=== PATIENT | male | born 1955 | race Caucasian/White ===

== ENCOUNTER → 2021-04-04 09:14 | Outpatient (CLI) | payer OTHER, SELFPAY ==
[2021-04-04 10:52] LABS: COVID19 -Nasal RAPID Negative (Negative)
== END ==
PROVIDERS: PCP Nurse Practitioner; Visit Provider Nurse Practitioner
DX: Z01.812 Encounter for preprocedural laboratory examination (principal); Z20.822 Contact with and (suspected) exposure to COVID-19
CPT/HCPCS: 87635

== ENCOUNTER 2021-04-06 06:22 | Day surgery (SDC) | payer OTHER, SELFPAY ==
[2021-03-31 13:57] VITALS: BMI 40.0
[2021-04-06] VITALS (14 sets, daily range): BP systolic 90–153; BP diastolic 35–91; PULSE 72–93; RESP 12–20; TEMP 35.9–37.2; O2SAT 95–100; BMI 39.3
--- NOTE | 2021-04-06 06:00 | DI.RAD.S_ITS ---
PROCEDURE: XR KNEE RT 1TO2V INDICATIONS: post op total knee TECHNIQUE: 2 view(s) of the knee acquired. COMPARISON: None. FINDINGS: Bones: Patient is status post knee joint arthroplasty. Hardware components are in expected positions. Visualized bony structures are intact. Soft tissues: Overlying postoperative changes are noted. IMPRESSION: Expected immediate postoperative appearance of right TKA. Dictated by: Bashir Bourne RRA Interpreted: Jacquelyn Bosch MD on 04/06/2021 at 12:33 Transcribed by: CARL on 04/06/2021 at 12:33 Approved by: Jacquelyn Bosch MD, PhD on 04/06/2021 at 12:57
[2021-04-06] MEDS: ACETAMINOPHEN 325 MG TABLET 975 MG PO (07:05)
[2021-04-06] MEDS: PREGABALIN 75 MG CAPSULE PO (07:06)
[2021-04-06] MEDS: CELECOXIB 200 MG CAPSULE PO (07:06)
[2021-04-06] MEDS: LACTATED RINGERS 1,000 ML 42 ML IV ×2 (07:11→09:40)
--- NOTE | 2021-04-06 07:17 | PM.PREOP ---
Pre-operative Note COVID-19 COVID-19 status: Negative Result date/Date tested (Pos, Neg/Pending): 04/04/21 Interval Note History & Physical reviewed/Exam performed by Physician: Yes Changes to H&P: No
--- NOTE | 2021-04-06 07:18 | PM.OP.1 ---
Operative Date/Time/Diagnoses Date of procedure: 04/06/21 Time of procedure: 10:05 Pre-op diagnosis: Right knee osteoarthritis Post-op diagnosis: same Procedure & Clinicians Procedure: Right total knee replacement Same procedure as scheduled: Yes Indications: The patient has had progressively worsening right knee pain with radiographic changes consistent with arthritis. Non-operative management has failed and the patient has requested total knee replacement. The risks, benefits and alternatives to surgery were discussed with the patient prior to proceeding. Risks discussed included, but were not limited to, failure to relieve pain, stiffness, infection, nerve damage, deep venous thrombosis, pulmonary embolism, stroke, coma, heart attack, permanent paralysis and , as well as the potential need for eventual revision of the prosthetic. Surgeon: Alan Jefferson Platen Press Feeder: Medhat Cannon Click Yes if Unassisted: No Anesthesia Type: Spinal, Sedation and Local Operative Notes Findings: Severe right knee osteoarthritis with significant synovial inflammation. Closure Type: primary Specimen(s): none sent Prosthetic devices, grafts, tissues, transplants, or devices: Implants used in this procedure were manufactured by the [employer] and [employer] and included the BCS II Journey total knee replacement with a size 7 right Oxinium femoral component, a size 6 right non porous tibial base plate. A 15 mm cross-linked tibial insert and a 38 mm oval Maxine II patella. Applied: implant(s) Estimated Blood Loss (mL): 50 Blood products transfused: none Tourniquet time (min): 59 Procedure in detail: The patient was seen in the pre-operative area, where the patient identified the right knee as the operative site and this was marked with my initials. The patient received pre-operative antibiotics, and was taken to the operating room and placed on the operative table in the supine position. After satisfactory anesthesia, a automotive diagnostic technician out was performed. The right leg was encircled with a tourniquet about the proximal thigh, and the leg was prepared from the toes to the tourniquet with ChloroPrep in the usual fashion and draped through sterile drapes. The leg was elevated and exsanguinated with Eschmark bandage and the tourniquet inflated to 250 mmHg pressure. The knee was approached through an approximately 18 cm incision centered over the patella and carried into the knee through a medial parapatellar arthrotomy. The anterior osteophytes and soft tissues were removed. The rotational landmarks of [place]'s line and the transepicondylar axis were marked on the femur with electrocautery, and intramedullary guide holes for the femur and tibia were created. The distal femoral cut was made in 6 degrees of valgus using the intramedullary guide at the primary cut setting. The proximal tibial cut was then made using the intramedullary guide, taking 9 mm of bone off the less involved side. The extension gap was checked and the rotation of the femoral component confirmed with the gap balancing system. The anterior, posterior and chamfer cuts were then made. The posterior osteophytes and soft tissues were then removed. The posterior capsule was injected with part of a mixture of 50 ml 0.25% Marcaine mixed with 20 ml Exparel and 4 mg of morphine for post-operative pain control. The remainder of this mixture was injected into the capsule and subcutaneous tissues during cement curing. The tibia was prepared with the rotation set by an extra medullary guide. Trial tibial and femoral components were then placed and the intercondylar notch cut through the femoral trial. Range of motion was 0-135 degrees, with good stability throughout the range. Despite the excision of 9 mm of tibial plateau as measured a 15 mm insert was necessary for flexion and extension stability. The patella was then cut to accommodate the patellar prosthetic. There was no need for a lateral release. The trials were then removed, and the femoral hole plugged with a bone plug. The bone was prepared with pulsatile lavage, and dried with a sponge. Cement was applied and the final prosthetics placed. Excess cement was removed during and after cement curing. After confirming there was no extruded cement posteriorly, the final tibial insert was placed. The knee was copiously irrigated and the tourniquet deflated. Hemostasis was obtained. The capsule was closed with interrupted # 2 polyester suture. The subcutaneous layer was closed with 3-0 Vicryl, and the skin with a running 3-0 V-Lock suture and Dermabond. An Aquacel Ag dressing was applied and the patient was taken to recovery having tolerated the procedure well. Post-operative Condition: stable Disposition: PACU Plan for aftercare: The patient will be maintained on a standard total knee replacement protocol with weight bearing as tolerated. The patient will receive aspirin and sequential compression devices for DVT prophylaxis. The patient will be discharged home when safe for the home environment.
[2021-04-06] MEDS: MIDAZOLAM 2 MG/2 ML VIAL IV (07:47)
[2021-04-06] MEDS: fentaNYL 100 MCG/2 ML INJ 50 MCG IV (07:47)
--- NOTE | 2021-04-06 07:57 | SUR.PREOP ---
. 0745 -Preparing for right femoral nerve block. Monitoring initiated and maintained throughout procedure. Placed on 2L NC per instructions of Dr Gómez. Versed and Fentanyl given per orders. 0746 - Time out performed. 0751 - Injection time. 0753 - Block completed. Patient remained stable throughout procedure. No adverse reactions.
[2021-04-06] MEDS: TRANEXAMIC ACID 1,000 MG VIAL 1000 MG INJ (08:25)
[2021-04-06] MEDS: CEFAZOLIN 1 GM VIAL 2 GM IV (08:30)
--- NOTE | 2021-04-06 08:42 | SUR.OPER ---
Supine on padded OR bed. Pillow under head, arms secured on padded armboards <90 degree abduction. Safety belt across torso. Non-operative leg secured with tape over blanket over lower leg. Operative leg secured in [place]. Foam padded brace at thigh of operative leg.
[2021-04-06] MEDS: BUPIVACAINE 0.25% W/ EPI 30 ML VIAL 60 ML INJ (08:49)
[2021-04-06] MEDS: MORPHINE 4 MG/ML INJ INJ (08:50)
[2021-04-06] MEDS: BUPIVACAINE LIPOSOME 266 MG/20 ML VIAL INJ (08:50)
--- NOTE | 2021-04-06 10:23 | SUR.PHASEI ---
Received to PACu after spinal anesthesia. Airway patent, self maintained. VSS. Report received from Dr Quiroz and LUDA Rodriguez.
--- NOTE | 2021-04-06 10:45 | SUR.PHASEI ---
Paula (friend) updated on status and room assignment.
--- NOTE | 2021-04-06 11:04 | SUR.PHASEI ---
Pt transferred to room 218 with belongings bag and walker. Received in room by LUDA Huddleston.
[2021-04-06] MEDS: LACTATED RINGERS 1,000 ML 100 ML IV ×2 (11:24→21:24)
[2021-04-06] MEDS: OXYCODONE IR 10 MG TABLET PO ×3 (13:13→19:27)
[2021-04-06] MEDS: ACETAMINOPHEN 325 MG TABLET 650 MG PO ×2 (14:20→21:23)
[2021-04-06] MEDS: IBUPROFEN 400 MG TABLET PO ×3 (14:21→21:24)
--- NOTE | 2021-04-06 14:50 | PT.IIE ---
Current Diagnoses Bilateral primary osteoarthritis of knee (04/06/21) Unilateral primary osteoarthritis, right knee (04/06/21) Surgery Performed Operation Date: 04/06/21 07:45 Actual Procedures p Total Knee Arthroplasty(Right) - Alan Jefferson MD Medical History (Last Updated 03/31/21 @ 14:02 by Michelle Yanes RN) Arthritis BMI 40.0-44.9, adult Former smoker Osteoarthritis Physical Therapy Inpatient Evaluation/Re-Eval M1 PT/OT-IP Prior Functional Status Start: 04/06/21 16:40 Freq: NEEDED Status: Active Protocol: Document 04/06/21 14:50 AB (Rec: 04/06/21 17:00 AB [id number]) Medical Review Prior Functional Status Medical History Reviewed Yes Communication able to make needs known Mobility and Gait pt stated that he is independent with all mobilities and ambulation without AD but started to use FWW outdoors and 4WW indoors ~ 1 week prior to sx Social History Household Members none Living Arrangements House Number of Floors (Floors) Two Floors Number of Stairs To Enter/Railing? pt plans to stay on main level of the house: bedroom is upstairs with 15 steps L rail ascending but has set up and couch bed on main level of the house 3 steps L rail ascending to enter the house from the garage 3 steps with B rails to enter the house from the front of the house. pt prefers to use the stairs from the garage Home Environment Standard Height Toilet,Tub/ Shower Doors Home Equipment Front Wheel Walker,Four Wheel Walker,Tub Transfer Bench,Hand Held Shower,Grab Bars In Shower Employment Status Retired Additional Social History Comment pt stated that he has a transfer pole with handle bars on the L side of the bed Pt's friend Paula will stay and assist pt until Apr 14; pt also stated [facility] M[facility] PT-IP Current Condition Start: 04/06/21 16:40 Freq: NEEDED Status: Active Protocol: Document 04/06/21 14:50 AB (Rec: 04/06/21 17:00 AB [id number]) Physical Therapy Current Condition Current Condition Evaluation Date 04/06/21 Treatment Diagnosis s/p R TKA; difficulty in walking Onset Date 04/06/21 Precautions Other Precautions falls Weight Bearing Status Weight Bearing Status Weight Bear as Tolerated Allowed Weight Bearing Amount (enter % RLE WBAT or #) (%) M3 PT-IP Subjective Start: 04/06/21 16:40 Freq: NEEDED Status: Active Protocol: Document 04/06/21 14:50 AB (Rec: 04/06/21 17:00 AB [id number]) Subjective Physical Therapy Visit Type Type Initial Evaluation Visit Start Time 14:50 Visit Stop Time 15:45 Total Visit Minutes 55 Number of PRODUCTION MATERIAL HANDLER Visits 0 Physical Therapy Visit Comments Patient Comments pt is agreeable to do PT Therapy Pain Assessment Pain When Pain Assessed At Rest Pain Present Pain Present Pain Reported Location right knee Intensity 3 Scale Used Numeric (0 - 10) Pain Management Techniques Apply Cold,Distraction, Modification of Treatment,Re- positioning,Timing of Activity with Medications M4 PT-IP Mobility and Gait Start: 04/06/21 16:40 Freq: NEEDED Status: Active Protocol: Document 04/06/21 14:50 AB (Rec: 04/06/21 17:00 AB [id number]) PT-Bed Mobility Assessment Supine to Sit Supine to Sit Moderate Assistance,1 Person Assistance Scooting Scooting to Edge of Bed Minimal Assistance PT-Transfer Assessment Sit to and From Stand Sit to and from Stand Minimal Assistance,1 Person Assistance,Use of Upper Extremities Equipment Transfer Assistive Device Gait Belt,Front Wheeled Walker Orthotic/Prosthetic Devices or Brace: No Transfers Transfer Destination Chair Transfer Technique ambulated using FWW Transfer Ability Level of Assist Minimal Assistance,1 Person Assistance,Use of Upper Extremities Comments Mobility Comments BP: 146/92. Heels slide completed prior to mobility. pt completed supine to sit SBA and cues for techniques. pt was able to sit on EOB SBA. without c/o dizziness/ lightheadedness. completed sit to stand min A and cues for safety and completed ambulation in room using FWW min A ~ 40 ft. pt can be impulsive. pt agreed to sit on chair. upon sitting, pt requested to use the toilet. noticed increase sweating and clamminess of pt. BP checked first: 105/62. informed pt regarding decrease in BP and for safety will not transfer pt to use the toilet. pt rested for a few minutes seated upright and BP checked again: 88/64. reclined pt on chair. LE elevated and back tilted. nurse in room. informed pt regarding safety and decrease in BP again. BP checked again after ~ 2 min: 124/67. Nurse in room and took over pt's care. informed pt's friend regarding caregiver training and agreed and will come in at 9 am tomorrow. Gait Assessment Gait Gait Assistance Required: Minimum Assistance Distance (Feet) 40 Able to Maintain Weight Bearing Status Yes During Gait Assistive Devices Assistive Device Gait Belt,Front Wheeled Walker Orthotic/Prosthetic Devices or Brace: No Gait Deviations General Gait Pattern Antalgic,Decreased Stride Length,Decreased Feet Clearance,Step-to Gait Factors Limiting Gait Function Factors Limiting Gait Function Decreased Activity Tolerance, Decreased Strength,Limited Range of Motion,Pain,Poor Balance,Poor Safety Awareness PT-Balance Assessment Sitting Balance and Reactions Static Sitting Balance Ability Good Dynamic Sitting Balance Ability Good Standing Balance and Reactions Static Standing Balance Ability Fair Dynamic Standing Balance Ability Fair Device Used FWW M5 PT-IP Objective Assessments Start: 04/06/21 16:40 Freq: NEEDED Status: Active Protocol: Document 04/06/21 14:50 AB (Rec: 04/06/21 17:00 [id number]) Orientation Orientation/Cognition Level of Alertness Alert Orientation Name,Place,Situation Language Function Ability Hard of Hearing Safety Awareness Decreased Safety Awareness Gross Range of Motion Lower Extremity ROM Assessment Right Impaired Impairments R knee flexion: ~ 70 deg AROM R knee extension: 20-30 deg less to 0 deg Strength Lower Extremity Strength Assessment Right Impaired Hip 3+/5 Knee 3+/5 Coordination Assessment Gross Coordination Gross Coordination WNL Sensation Assessment Sensation Gross Sensation WNL Muscle Tone Muscle Tone WNL Yes M6 PT-IP Treatment Start: 04/06/21 16:40 Freq: NEEDED Status: Active Protocol: Document 04/06/21 14:50 AB (Rec: 04/06/21 17:00 AB [id number]) Physical Therapy Treatment Exercises Exercises Heel Slides Education Education Provided Precautions,Weight Bearing Status,Post-Op Packet,Safety M7 PT-IP Assessment and Plan Start: 04/06/21 16:40 Freq: NEEDED Status: Active Protocol: Document 04/06/21 14:50 AB (Rec: 04/06/21 17:00 [id number]) PT Summary Assessment and Plan Potential Rehabilitation Potential Good Status of Condition at Evaluation Evolving Summary Impairments Pain,ROM,Strength,Balance, Coordination,Sensation,Tone, Cognition,Bed Mobility, Transfers,Gait,Activity Tolerance Assessment Summary pt s/p R TKA POD 0. pt requiring min to mod A with mobility at this time but did not tolerate much activity with decrease in BP after ambulation. will continue to assess progress. caregiver training set up for tomorrow at 9 am. will also need to complete stair climbing training prior to d/c. Goals Bed Mobility Goal Standby Assistance Transfer Goal Standby Assistance,Front Wheeled Walker Gait Goal Standby Assistance,Front Wheel Walker Gait Distance 150 Other Goals up/down 3 steps L rail SBA Days to Meet Goals 5 Frequency of Treatment Frequency Of Treatment Twice a Day Treatment Plan Physical Therapy Treatment Plan Bed Mobility Training,Transfer Training,Gait Training, Therapeutic Exercise,Balance Retraining,Post Op Education, Discharge Planning,Hot or Cold Pack,Neuromuscular Re-ed, Coordination Retraining,Manual Therapy Precautions Other Precautions WBAT RLE Recommendations To Nursing Amount of Assist Needed 1 Person Assist Discharge Recommendations PT Discharge Recommendations Home with Assistance,Home Health Transportation Needs at Discharge Private Vehicle
--- NOTE | 2021-04-06 18:50 | PC.NURSE ---
A&Ox4. Arrived to unit from PACU around 11:00. Pain increased to 5/10 in right knee and was given PRN oxycodone and scheduled tylenol and ibuprofen. PT worked with patient around 1400 and patient had a vasovagal reaction but did not loose consciousness. His BP went down to the high 80's over 50's and was placed in [place] in his chair and given cool wash clothes. His BP came back up to 130/62. Patient has passed gas but no stool yet. He is voiding well. Pain this evening down to 2/3-10. Call light within reach, bed low.
[2021-04-06] MEDS: DOCUSATE 100 MG CAPSULE PO (21:23)
[2021-04-06] MEDS: ASPIRIN EC 81 MG TABLET PO (21:24)
[2021-04-07 02:04] VITALS: BP 144/67; PULSE 87; RESP 18; TEMP 36.2
[2021-04-07] MEDS: IBUPROFEN 400 MG TABLET PO ×3 (02:05→11:33)
[2021-04-07 07:42] VITALS: BP 138/84; PULSE 85; RESP 18; TEMP 37.1; O2SAT 98
[2021-04-07] MEDS: ASPIRIN EC 81 MG TABLET PO (07:43)
[2021-04-07] MEDS: DOCUSATE 100 MG CAPSULE PO (07:43)
[2021-04-07] MEDS: ACETAMINOPHEN 325 MG TABLET 650 MG PO (07:43)
[2021-04-07] MEDS: OXYCODONE IR 10 MG TABLET PO ×2 (07:44→11:32)
--- NOTE | 2021-04-07 07:59 | PM.DS.1 ---
History of Present Illness History of Present Illness Date Patient Seen: 04/07/21 Time Patient Seen: 07:59 Chief complaint: RIGHT TKA *OPB* Narrative: The history and physical is contained in the chart previously completed note. Please refer to that note for this information. Discharge Providers Provider Date of admission: 04/06/21 Discharge Date: 04/07/21 Primary care physician: ROSA Fountain Consults: 04/06/21 11:03 Consult to Discharge Planning Routine Comment: Consult to Physical Therapy Evaluate & Treat Comment: Physician Instructions: postop TKA protocol Discharge provider: Alan Jefferson MD Summary Hospital Course Discharge Diagnosis: 1. Right knee osteoarthritis Hospital Course: Patient was admitted to the hospital and taken directly to the operating room on April 06, 2021. He underwent a right total knee replacement without complications. His original intention was to go home the day of surgery however he attempted to stand and walk around his room and had a mild vasovagal incident. He did not fall. We elected to keep him in the hospital overnight. The symptoms have resolved. Status at Discharge Cognitive/behavioral status at discharge: oriented Functional status at discharge: uses cane/walker Overall status at discharge: patient is progressing back to baseline Time Spent with Patient Time spent: Less than 30 minutes Exam Vital Signs (past 8 hours): - 04/07/21 02:04 04/07/21 07:42 Temperature 97.2 F L 98.8 F Pulse Rate 87 85 Respiratory Rate 18 18 Blood Pressure 144/67 H 138/84 Pulse Oximetry 98 Oxygen Delivery Method Room Air Oxygen Flow Rate 0 Narrative Exam Narrative: Right knee wound is dressed with no drainage on the bandage. Calf is soft. Light touch and motion are intact in the right lower extremity. [facility] Medical History (Updated 03/31/21 @ 14:02 by Michelle Yanes RN) Arthritis BMI 40.0-44.9, adult Former smoker Osteoarthritis Surgical History (Updated 03/31/21 @ 14:02 by Michelle Yanes RN) History of surgery Hx of tonsillectomy Social History household members: none Smoking Status: Former smoker alcohol intake: current Discharge Assessment & Plan Assessment and Plan Assessment: Stable postop day 1 status post right total knee replacement. Plan of Treatment: At the time of this dictation the plan is he will be discharged today after physical therapy. Prescriptions have been sent in for oxycodone and Vistaril to his pharmacy. He has been instructed in the use of Tylenol and ibuprofen for pain relief and low-dose aspirin for DVT prophylaxis. Follow-up will be at my office in 2 weeks. Discharge Plan Discharge Plan Patient Disposition: Home Discharge orders & Medications Discharge Orders: Discharge (Order); Ordered 04/07/21 Ordered By: Alan Jefferson Prescriptions: New acetaminophen 325 mg Tablet 650 mg PO TID 30 Days Qty: 180 RF: 0 aspirin 81 mg Tablet,Delayed Release (Dr/Ec) 81 mg PO BID 42 Days Qty: 84 RF: 0 ibuprofen 400 mg Tablet 400 mg PO Q4H 30 Days Qty: 180 RF: 0 oxycodone 5 mg Tablet 5 mg PO Q4H PRN (Reason: Pain, Moderate (4-6)) Qty: 40 RF: 0 hydroxyzine pamoate 25 mg Capsule 25 mg PO Q6HR PRN (Reason: Nausea) Qty: 30 RF: 0 Follow up/Referrals: Marybeth Rich ARNP [Primary Care Provider] - Alan Jefferson MD [Physician] - 2 Weeks Diet/Activity/Treatments Diet: Diet as Tolerated and Regular Activity: You may bear weight as tolerated on your right knee. Cold/Heat Therapy: Apply ice to the right knee for 15 minutes every hour as needed for pain control. Skin/Wound/Dressing Care Report to your healthcare provider any signs of infection, such as:: chills, fever, night sweats, increased pain, unusual drainage and unusual redness Dressing: Remove the Aaron wrap 3 days after surgery and you may shower normally. Leave the deeper dressing in place until postoperative follow-up. If the central strip of the deeper dressing becomes saturated with either water or blood, please call the office to have it evaluated. Visit Report/Discharge Packet Instructions: DI for Knee Replacement Stand Alone Forms: Surgery Discharge Discharge Data Primary Care Provider: Marybeth Rich Attending Provider: Alan Jefferson
--- NOTE | 2021-04-07 09:48 | PT.IPTN ---
Current Diagnoses Bilateral primary osteoarthritis of knee (04/06/21) Unilateral primary osteoarthritis, right knee (04/06/21) Surgery Performed Operation Date: 04/06/21 07:45 Actual Procedures p Total Knee Arthroplasty(Right) - Alan Jefferson MD Physical Therapy Treatment Note M2 PT-IP Current Condition Start: 04/06/21 16:40 Freq: NEEDED Status: Active Protocol: Document 04/06/21 14:50 AB (Rec: 04/06/21 17:00 AB [id number]) Physical Therapy Current Condition Current Condition Evaluation Date 04/06/21 Treatment Diagnosis s/p R TKA; difficulty in walking Onset Date 04/06/21 Precautions Other Precautions falls Weight Bearing Status Weight Bearing Status Weight Bear as Tolerated Allowed Weight Bearing Amount (enter % RLE WBAT or #) (%) M3 PT-IP Subjective Start: 04/06/21 16:40 Freq: NEEDED Status: Active Protocol: Document 04/07/21 09:08 SP (Rec: 04/07/21 11:06 SP [id number]) Subjective Physical Therapy Visit Type Type Treatment Note Visit Start Time 09:08 Visit Stop Time 09:48 Total Visit Minutes 40 Notes Friend Paula completed caregiver training and provided any assist required throughout tx. Number of MANAGER OF HOUSEKEEPING Visits 1 Physical Therapy Visit Comments Patient Comments pt is agreeable to do PT Therapy Pain Assessment Pain When Pain Assessed During Mobility Pain Present Pain Present Pain Reported Location right knee Intensity 3 Scale Used at rest, 7 during AAROM LE ex only, decrease return rest Description With Movement Pain Behaviors Facial Grimacing Pain Management Techniques Apply Cold,Distraction, Modification of Treatment,Re- positioning,Timing of Activity with Medications M4 PT-IP Mobility and Gait Start: 04/06/21 16:40 Freq: NEEDED Status: Active Protocol: Document 04/07/21 09:08 SP (Rec: 04/07/21 11:06 SP [id number]) PT-Bed Mobility Assessment Supine to Sit Supine to Sit Standby Assistance Scooting Scooting to Edge of Bed Standby Assistance PT-Transfer Assessment Sit to and From Stand Sit to and from Stand Standby Assistance,Contact Guard Assistance,Use of Upper Extremities Equipment Transfer Assistive Device Gait Belt,Front Wheeled Walker ,4 Wheeled Walker Orthotic/Prosthetic Devices or Brace: No Transfers Transfer Destination Chair,Wheelchair Transfer Technique ambulated using FWW, 4WW Transfer Ability Level of Assist Standby Assistance,Contact Guard Assistance,Use of Upper Extremities Comments Mobility Comments Pt denied any lightheadness through out tx. MANAGER OF HOUSEKEEPING instructed LE ex w/ use of strap over R foot for AAROM as needed. Supine>sit and scoot to EOB SBA w/use of strap for LE support. Sit> stand CGA, cued push from bed. MANAGER OF HOUSEKEEPING adjusted personal FWW up 1 notch for proper height, ambulated further into hallway using FWW CGA 40 ft w/ wc follow and required to sit rest due to decrease strength, endurance and pain. Stand> sit into w/c CGA w/ cue for positioning RLE little forward for comfort. Wheeled to stairs, completed 3 stair mgt x1 w/ 1 HR and B HR to assess which easiest to enter front or garage. Ambulated 60 ft more in hallway using FWW CGA w/c follow before required sit rest. MANAGER OF HOUSEKEEPING pushed pt back to room. Sit>stand using 4WW assess for safety at home SBA 40 ft in hallway, good mgt post education for proper brake use, ok to use at home as well. Pt returned to chair when back in room SBA, reviewed seated knee flexion and able to recline self in chair. Friend positioned rolled blanket under ankle to assist passive R knee extension. Pt had call light and all needs in reach. Gait Assessment Gait Gait Assistance Required: Contact Guard Assist Distance (Feet) 60 Able to Maintain Weight Bearing Status Yes During Gait Assistive Devices Assistive Device Gait Belt,Front Wheeled Walker ,4 Wheeled Walker Orthotic/Prosthetic Devices or Brace: No Gait Deviations General Gait Pattern Antalgic,Decreased Stride Length,Decreased Feet Clearance Factors Limiting Gait Function Factors Limiting Gait Function Decreased Activity Tolerance, Decreased Strength,Limited Range of Motion,Pain,Poor Balance,Poor Safety Awareness Comments Gait Comments Pt decreased WB initially with R knee flexed, improved with cuing for quad facilitation and heel toe patterning, improved step over step patterning and decrease to Min UE WB on FWW/4WW. Stair Climbing Assessment Evaluation Level of Assist On Stairs Contact Guard Assistance Devices Stair Climbing Assistive Devices Left Railing Technique/Endurance Stair Climbing Direction Ascend and Descend Stair Climbing Technique Step to Step Number of Steps Climbed 3 Stair Climbing Set # Repetitions (reps) 2 Comments Stair Climbing Comments Ascend/descend 3 stairs x2 sets CGA step to cued x1 for proper patterning good carryover 2nd set, 1 set L HR and 2nd set B HR to assess easiest enterance to home front vs garage and thinks prefers front where has B HRs. Pt states doesn't need to go up to bedroom right not will sleep on couch and when stronger will try going up stair to bedroom. PT-Balance Assessment Sitting Balance and Reactions Static Sitting Balance Ability Normal Dynamic Sitting Balance Ability Normal Standing Balance and Reactions Static Standing Balance Ability Fair Dynamic Standing Balance Ability Fair Device Used FWW, 4WW M5 PT-IP Objective Assessments Start: 04/06/21 16:40 Freq: NEEDED Status: Active Protocol: Document 04/06/21 14:50 AB (Rec: 04/06/21 17:00 AB [id number]) Orientation Orientation/Cognition Level of Alertness Alert Orientation Name,Place,Situation Language Function Ability Hard of Hearing Safety Awareness Decreased Safety Awareness Gross Range of Motion Lower Extremity ROM Assessment Right Impaired Impairments R knee flexion: ~ 70 deg AROM R knee extension: 20-30 deg less to 0 deg Strength Lower Extremity Strength Assessment Right Impaired Hip 3+/5 Knee 3+/5 Coordination Assessment Gross Coordination Gross Coordination WNL Sensation Assessment Sensation Gross Sensation WNL Muscle Tone Muscle Tone WNL Yes M6 PT-IP Treatment Start: 04/06/21 16:40 Freq: NEEDED Status: Active Protocol: Document 04/07/21 09:08 SP (Rec: 04/07/21 11:06 SP [id number]) Physical Therapy Treatment Exercises Exercises Ankle Pumps,Quad Sets,Heel Slides,Supine Hip Abduction, Short Arc Quads,Seated Knee Flexion/Extension Knee ROM Measurement 80 deg R knee flexion AAROM w/ strap heel slides. Education Education Provided Precautions,Weight Bearing Status,Post-Op Packet,Safety M7 PT-IP Assessment and Plan Start: 04/06/21 16:40 Freq: NEEDED Status: Active Protocol: Document 04/07/21 09:08 SP (Rec: 04/07/21 11:06 SP [id number]) PT Summary Assessment and Plan Potential Rehabilitation Potential Good Status of Condition at Evaluation Evolving Summary Impairments Pain,ROM,Strength,Balance, Coordination,Sensation,Tone, Cognition,Bed Mobility, Transfers,Gait,Activity Tolerance Progress Towards Goals Progressing Toward Goals,Slow Progress due to Pain,Slow Progress due to Activity Tolerance Assessment Summary Pt required CG- SBA using FWW and 4WW, further distance gait in hallway 60 ft furthest, completed stair mgt. Pt is ok to return home with friend to assist him when medically cleared. Unsure if HHPT thought set up is in network according to rounds report, pt is mobile enought to go to outpt PT, will need to call and set up. Pt good understanding of LE ex and mobility in meantime. Goals Bed Mobility Goal Standby Assistance Transfer Goal Standby Assistance,Front Wheeled Walker Gait Goal Standby Assistance,Front Wheel Walker Gait Distance 150 Other Goals up/down 3 steps L rail SBA Days to Meet Goals 5 Frequency of Treatment Frequency Of Treatment Twice a Day Treatment Plan Physical Therapy Treatment Plan Bed Mobility Training,Transfer Training,Gait Training, Therapeutic Exercise,Balance Retraining,Post Op Education, Discharge Planning,Hot or Cold Pack,Neuromuscular Re-ed, Coordination Retraining,Manual Therapy Other Recommendations and Next Treatment LE ex, ROM, gait further Focus distance FWW/ 4WW. Precautions Other Precautions WBAT RLE Recommendations To Nursing Amount of Assist Needed Standby Assistance,1 Person Assist Discharge Recommendations PT Discharge Recommendations Home with Assistance,Home Health,Outpatient PT Transportation Needs at Discharge Private Vehicle
--- NOTE | 2021-04-07 11:29 | CM.DANOTE ---
Discharge Planning/Care Management DCP: assessment: case received, d/c to home order noted. Met with pt and his friend Paula (here to stay with pt for 7 days after he goes home for supportive assist.) Pt is a 65 year old male who admitted for a scheduled R TKA yesterday. Surgeon: Dr. Jefferson Payer: [employer]. (pt explains that he pays privately for services and then submits bill to the Program for whatever part of it they will reimburse). Dr. Jefferson had set up HH services with [facility] prior to admission. [facility] was contacted and she explained that [facility] was unable to accommodate pt with this type of plan. She said Dr. Jefferson' clinic was contacted about this prior to surgery. She did agree to have someone from her agency call pt to discuss this further. They recommended trying another HH agency. Called [facility] and was same outcome. They also will contact pt to discuss details. Pt is aware, will follow up with Dr. Jefferson office to see what they might recommend and will also plan to focus on home exercises he has been given. He has not explored OUTPT PT and will do so once he gets home although he would then have to pay someone to take him to the appts. Pt says he is very able to pay ahead for the HH treatments and then get reimbursed for any amount the company does not need. He will discuss this in detail with the agencies. Advanced directive, confirm from FAMILY Start: 04/06/21 11:20 Freq: Q24H Status: Active Protocol: Document 04/06/21 22:42 JTin (Rec: 04/06/21 22:42 JK [id number]) Advance Directive, confirm on record Time 21:15 Person contacted patient Copy received No CM Discharge Assessment Start: 04/07/21 11:10 Freq: Status: Active Protocol: Document 04/07/21 11:10 ITV (Rec: 04/07/21 11:11 ITV [id number]) Discharge Planning Assessment Advance Directives? Yes Advance Directives on File No History Provided By Patient,Medical Record Has Patient been admitted in last 30 No days? Prior Living Arrangements House Household Members none Type of transportation used prior to Drives own vehicle admit Independent with ADL's Yes Is patient alert and oriented? Yes Comment has needed post surgery dme Document 04/07/21 11:28 ITV (Rec: 04/07/21 11:28 ITV [id number]) Discharge Planning Assessment Advance Directives? Yes Advance Directives on File No History Provided By Patient,Medical Record Has Patient been admitted in last 30 No days? Prior Living Arrangements House Household Members none Type of transporation used prior to Drives own vehicle admit Independent with ADL's Yes Is patient alert and oriented? Yes Comment has needed post surgery dme Pre-Anesthesia Assessment Start: 03/31/21 13:57 Freq: Status: Active Protocol: Document 03/31/21 13:57 CAB (Rec: 03/31/21 14:04 CAB [id number]) Pre-Anesthesia Assessment PAC Comment Pt declined to schedule a PAC phone assess. He reported he had no questions/concerns regarding upcoming surgery. He denies any allergies, denies taking any medications. Surgeon H&P only source of medical/medication history. Patient Information Reviewed Via Chart Review H&P Completed Within 30 Days Yes Diagnostic Results BMP/CMP,CBC,EKG Comment Outside labs/EKG scanned, COVID screen not identified Primary Care Provider Unknown Seen Specialist in Last 12 Months Yes Specialist Seen Orthopedist Primary Language Trinidadian Drum Puller Required No Height 182.88 cm Weight 133.81 kg Body Mass Index (BMI) 40.0 Anesthesia Review Requested No alcohol intake current Alcohol Intake Frequency Other: Occasional Smoking Status Former smoker Pain Present Pain Reported Musculoskeletal Symptoms Abnormal Gait,Difficulty Walking,Joint Pain Patient is completely paralyzed or No completely immobile Prosthesis or Orthotic Device Cane Mental Status Oriented to own ability Currently Taking a Beta Nancy No Anti-Coagulant Therapy No Hx Pacemaker/ICD No Pacemaker Rep Required? No Urinary Catheter Present No Hx Urinary Self Catheterization No Marital Status Unknown Patient Discharge Plan Description Return Home
--- NOTE | 2021-04-07 12:06 | PC.NURSE ---
Day shift: Paperwork signed and all questions answered. Pt has all personal belongings. MD scripts sent by to Pt's pharmacy. Pt ate lunch here and denies any nausea. Medicated for pain per MAR for car ride home. Pt taken in WC by JEREL Jacobs. Pt's friend is driving him home and will be with him for the nest few days. Left unit at approx 1240.
--- NOTE | 2021-04-07 12:57 | PC.NURSE ---
Day shift: Left unit at approx 1245.
== END 2021-04-07 12:58 | disposition home or self-care (01) ==
LOC: OR 06:50 → AC 06:50
PROVIDERS: Admitting Provider Anesthesiology; PCP Nurse Practitioner; Referring Provider Orthopaedic Surgery; Visit Provider Orthopaedic Surgery
PROC: 0SRC0JZ Replacement of Right Knee Joint with Synthetic Substitute, Open Approach (ICD-10-PCS; CPT 27447; principal; 2021-04-06 07:45)
DX: M17.11 Unilateral primary osteoarthritis, right knee (principal); M65.861 Other synovitis and tenosynovitis, right lower leg
CPT/HCPCS: 27447; 73560; 97116; 97162; 97530; C1776; C9290; J0690; J2250; J2270; J2704; J3010

== ENCOUNTER → 2025-02-19 16:22 | Outpatient (CLI) | payer MEDICARE, OTHER, SELFPAY ==
[2021-04-06 07:05] VITALS: BMI 39.3
--- NOTE | 2025-02-19 17:03 | EKG_ITS ---
[facility] [address] [place] [address] Test Date: 2025-02-19 Pat Name: Kendrick Pineda Department: Room: Gender: Male [employer] Dispatcher: : 1955 Requested By: Order Number: [id number] Reading MD: Ray Galarza MD Measurements Intervals [place] Rate: 78 P: 45 WI: 172 QRS: 44 QRSD: 100 T: 47 QT: 366 QTc: 417 Interpretive Statements Normal sinus rhythm Incomplete right bundle branch block NO PRIOR TRACING Electronically Signed On 02-20-2025 6:44:35 PDT by Ray Galarza MD
[2025-02-19 17:34] LABS: Appearance Urine UA CLEAR; Bilirubin Urine UA NEGATIVE (NEGATIVE); Color Urine UA YELLOW; Glucose Urine UA NEGATIVE (Negative); Ketones Urine UA NEGATIVE (NEGATIVE); Leukocyte Esterase Urine UA NEGATIVE (NEGATIVE); Nitrite Urine UA NEGATIVE (Negative); Occult Blood Urine UA TRACE-INTACT (Negative); Protein Urine UA TRACE (Negative)
[2025-02-19 17:39] LABS: Add Manual Diff / Slide Review NO; Basophils Absolute Auto 0 /uL (0-100); Basophils Percent Auto 0.7 % (0-2); Eosinophils Absolute Auto 400 /uL (0-450); Eosinophils Percent Auto 5.7 % (2-4); Hematocrit 45.4 % (41-53); Hemoglobin 15.6 g/dL (13.5-17.5); Lymphocytes Absolute Auto 1800 /uL (1100-4500); Lymphocytes Percent Auto 28.6 % (25-40); Mean Corpuscular HGB Conc 34.4 % (30-36); Mean Corpuscular Hemoglobin 29.9 PG (26-34); Mean Corpuscular Volume 86.8 fL (80-100); Monocytes Absolute Auto 600 /uL (0-900); Monocytes Percent Auto 9.3 % (3-14); Neutrophils Absolute Auto 3500 /uL (1500-7000); Neutrophils Percent Auto 55.7 % (50-75); Platelet Count 233 X10^3/uL (150-400); Red Blood Cell Count 5.22 X10^6/uL (4.5-5.9); Red Cell Distribution Width 14.3 % (11.6-14.8); White Blood Cell Count 6.4 X10^3/uL (4.5-11.0)
[2025-02-19 17:56] LABS: Hemoglobin A1C% w Est Avg Glu 5.4 % (4.0-6.0)
[2025-02-19 17:58] LABS: BUN Creatinine Ratio 25.3 (6-22); Blood Urea Nitrogen 22 mg/dL (9-20); Calcium 9.8 mg/dL (8.4-10.2); Carbon Dioxide 26 mmol/L (22-32); Chloride 104 mmol/L (98-107); Estimated Glomerular Filt Rate > 60 mL/min (>60); Glucose 78 mg/dL (70-99); HEMOLYSIS < 15 (0-50); Potassium 4.3 mmol/L (3.4-5.1); Sodium 141 mmol/L (137-145)
[2025-02-19 18:02] LABS: Bacteria Urine Occasional (0-1); Culture Indicated Urine Cult Not Indicated; RBC Urine None Seen (0-5/HPF); Squamous Epithelial Cell Urine None Seen (0-5/HPF); Urine Volume 10mL (spun); WBC Urine None Seen (0-5/HPF)
== END ==
LOC: RESP 16:29
PROVIDERS: Referring Provider Orthopaedic Surgery; Visit Provider Orthopaedic Surgery
DX: Z01.812 Encounter for preprocedural laboratory examination (principal); R73.9 Hyperglycemia, unspecified; N39.0 Urinary tract infection, site not specified; Z01.818 Encounter for other preprocedural examination
CPT/HCPCS: 36415; 80048; 81001; 83036; 85025; 93005